=== PATIENT | male | born 1955 | race African-American/Black ===

== ENCOUNTER 2017-07-21 05:22 | Emergency (ER) | payer OTHER ==
[2017-07-21] MEDS ORDERED: Sodium Chloride 0.9% 500 ML BAG ONE (05:52)
[2017-07-21 06:18] LABS: #Basophils 0.1 thou/uL (0.0-0.2); #Eosinphils 0.7 thou/uL (0.0-0.7); #Monocytes 0.7 thou/uL (0.11-0.59); #Neutrophils 4.7 thou/uL (1.40-6.50); %Basophils 1.2 % (0.0-1.0); %Lymphocytes 24.1 % (21.0-51.0); %Monocytes 8.2 % (0.0-10.0); %Neutrophils 57.5 % (42.0-75.0); Hemoglobin 14.7 g/dL (14.0-18.0); Mean Corpuscular HGB CONC 33.3 g/dL (32.0-36.0); Mean Corpuscular Hemoglobin 31.1 pg (27.0-31.0); Mean Corpuscular Volume 93.4 fl (80.0-94.0); Platelet Count 218 thou/uL (130-400); RBC Distribution Width 12.7 % (11.5-14.5); Red Blood Cell (RBC) Count 4.71 mill/uL (4.70-6.10); White Blood Cell (WBC) Count 8.2 thou/uL (4.8-10.8)
[2017-07-21 06:29] LABS: Anion Gap 18 mmol/L (10-20); BUN (Urea Nitrogen) 17 mg/dL (8.4-25.7); Calc. Creatinine Clearance 0 mL/min (70-130); Calcium 9.6 mg/dL (7.8-10.44); Carbon Dioxide 24 mmol/L (23-31); Chloride 105 mmol/L (98-107); Estimated GFR-MDRD 67; Glucose 119 mg/dL (80-115); Potassium 3.7 mmol/L (3.5-5.1); Sodium 143 mmol/L (136-145)
[2017-07-21 06:37] LABS: CKMB 1.5 ng/mL (0-6.6); Troponin I Less than 0.010 ng/mL (< 0.028)
[2017-07-21 07:07] LABS: Bilirubin Negative (Negative); Blood, Urine Negative (Negative); Clarity Clear (Clear); Glucose, Urine (Dipstick) Negative (Negative); Leukocyte Negative (Negative); Nitrite Negative (Negative); Protein, Urine (Dipstick) Negative (Neg-Trace); pH, Urine 6.5 (5.0-9.0)
[2017-07-21 07:27] LABS: Amphetamine Not Detected (NotDetected); Barbiturates Screen Not Detected (NotDetected); Benzodiazepine Screen Not Detected (NotDetected); Cocaine Metabolite Screen Not Detected (NotDetected); Medtox Control Line Valid? VALID (VALID); Methadone Not Detected (NotDetected); Methamphetamine Not Detected (NotDetected); Opiate Screen Not Detected (NotDetected); Oxycodone Screen Not Detected (NotDetected); Phencyclidine (PCP) Not Detected (NotDetected); THC/Cannabinoid Screen Not Detected (NotDetected); Tricyclic Screen Not Detected (NotDetected)
--- NOTE | 2017-07-21 07:49 | CT ---
PRELIMINARY REPORT/[facility]/EMERGENCY AFTER HOURS PROCEDURE: EXAM: CT Head Without Intravenous Contrast CLINICAL HISTORY: 62 years old, male; Pain; Other: Dizziness and blurred vision; Patient HX: Dizziness and blurred visi on x 3 hours TECHNIQUE: Axial computed tomography images of the head/brain without intravenous contrast. All CT scans at this facility use one or more dose reduction techniques, viz.: automated exposure control; ma/Kv adjustme nt per patient size (including targeted exams where dose is matched to indication; i.e. head); or ite rative reconstruction technique. COMPARISON: No relevant prior studies available. FINDINGS: No definite acute skull fracture. Old left-sided nasal bone fracture. Minimal mucosal thickening in the ethmoid and maxillary sinuses. Included paranasal sinuses otherwise appear essentially clear. No acute intracranial hemorrhage or mass effect. Ventricle size is normal for age. There is mild, relatively symmetrical decreased attenuation in the periventricular white matter, like ly from microvascular disease. No definite acute infarct by CT. MRI could be more sensitive/specific for an acute infarct if clinically indicated. IMPRESSION: No acute intracranial bleed or mass effect. Changes of microvascular disease. No definite acute infarct by CT, see above. Thank you for allowing us to participate in the care of your patient. Dictated and Authenticated by: Flaquito Luciano MD 07/21/2017 6:37 AM Central Time ([place] & [place]) FINAL REPORT BRAIN CT WITHOUT IV CONTRAST EMERGENCY AFTER HOURS EXAM: TIME: 5:53 a.m. DATE: 07/21/17. FINDINGS: No mass or bleed or other significant acute intracranial process. Mild sinus mucosal congestion. Ol d left nasal bone fracture. No acute process. POS: OFF
--- NOTE | 2017-07-21 09:06 | CT ---
CTA CAROTID AND INTRACRANIAL CTA: HISTORY: Dizziness and blurry vision for 4 hours. FINDINGS: Contrast-enhanced CTA of the carotid arteries and intracranial CTAs performed. Two-D and 3D reconstr ucted images performed on an independent 3D work station. The CTA images of the origins of the great vessels as well as the aortic arch and lower aspect of the neck are suboptimal due to patient motion. There is a great deal of motion which causes blurring an d left than optimum characterization. The aortic arch contains some vascular calcifications. No evidence of aortic dissections or aneurysm s seen. The right brachiocephalic artery is patent. The right and left subclavian arteries are also patent. The right and left vertebral arteries are patent without evidence of significant stenosis. RIGHT COMMON CAROTID ARTERY: The right common carotid artery is unremarkable without evidence of significant stenosis. Some ather osclerotic calcification is seen in the origin of the right ICA without evidence of a high-grade sten osis. More distally, the right ICA is patent all the way intracranially. LEFT CAROTID: The left common carotid artery is tortuous but is patent with evidence of significant stenosis. Ther e is some minimal atherosclerotic plaque in the origin of the left ICA without evidence of high-grade or significant stenosis. More distally, the left ICA is patent. INTRACRANIAL CTA: Right and left cavernous and supraclinoid ICAs are patent. The right and left anterior cerebral and middle cerebral arteries are also patent. The right and left vertebral artery, basilar artery, and right and left posterior cerebral arteries a re patent. IMPRESSION: No significant evidence of high-grade stenosis or flow-limiting lesion seen. POS: [facility]
[2017-07-21] MEDS ORDERED: Iopamidol 370 76% 100 ML VIAL ONE (09:24)
== END 2017-07-21 08:17 | disposition short-term general hospital (02) ==
LOC: MADERS 05:22
DX: R41.82 Altered mental status, unspecified (principal); I25.10 Atherosclerotic heart disease of native coronary artery without angina pectoris; E78.5 Hyperlipidemia, unspecified; I10 Essential (primary) hypertension; F32.9 Major depressive disorder, single episode, unspecified; F17.210 Nicotine dependence, cigarettes, uncomplicated; Z79.899 Other long term (current) drug therapy; Z79.82 Long term (current) use of aspirin
CPT/HCPCS: 70450; 70496; 80048; 80306; 81003; 82553; 84484; 85025; 93005; 96360; J7050